=== PATIENT | male | born 1950 | race Caucasian/White ===

== ENCOUNTER 2017-11-17 08:56 | Day surgery (SDC) | payer BC ==
[~2017-11-17 08:56] MED LIST: Lactated Ringers 1,000 ML IV SCH
[2017-11-17] MEDS ORDERED: fentaNYL 100 MCG/2 ML SDV ONE (09:50)
[2017-11-17] MEDS ORDERED: Propofol 200 MG/20 ML SDV ONE (09:50)
--- NOTE | 2017-11-17 13:55 | OR ---
PREOPERATIVE DIAGNOSIS: Family history of colon cancer-father. POSTOPERATIVE DIAGNOSIS: Sigmoid diverticulosis, otherwise, normal exam. PROCEDURE PROPOSED: Total flexible colonoscopy. PROCEDURE DONE: Total flexible colonoscopy. INDICATION: A 66-year-old gentleman who comes in for colonic screening due to family history of colon cancer. Last examination about 10 years ago. His father was diagnosed in his 80s with colon cancer and is still living at . TECHNIQUE: The patient was brought to the endoscopy suite, placed in left lateral decubitus position. He was sedated with propofol per [employer]. The flexible video colonoscope was then passed transanally, and under visualization, advanced to the cecum without difficulty. Examination revealed a normal ascending, transverse, descending colon. Sigmoid colon revealed mild diverticulosis, and the rectum was normal. There was no evidence of any polyps, colitis, or other abnormalities. The scope was then withdrawn. The patient tolerated the procedure well. FINAL IMPRESSION: 1. Sigmoid diverticulosis. 2. Family history of colon cancer-father. PLAN: I feel at his age now he should have colonoscopies every 5 years because of his increased risk of either polyp or cancer formation. SCM: 11/17/2017 11:02:54 MODL: 11/17/2017 12:39:01 /[id number]
== END 2017-11-17 12:10 | disposition home or self-care (01) ==
LOC: VM.SDS 08:56
PROVIDERS: ATTEND Surgery
DX: Z12.11 Encounter for screening for malignant neoplasm of colon (principal); K57.30 Diverticulosis of large intestine without perforation or abscess without bleeding; I10 Essential (primary) hypertension; E78.1 Pure hyperglyceridemia; E03.9 Hypothyroidism, unspecified; J45.30 Mild persistent asthma, uncomplicated; N40.1 Benign prostatic hyperplasia with lower urinary tract symptoms; E78.5 Hyperlipidemia, unspecified; Z80.0 Family history of malignant neoplasm of digestive organs; Z79.899 Other long term (current) drug therapy; Z88.8 Allergy status to other drugs, medicaments and biological substances
CPT/HCPCS: 45378; J2704; J3010; J7120

== ENCOUNTER 2023-04-09 12:37 | Day surgery (SDC) | payer MEDICARE, BC ==
[2023-04-09] MEDS ORDERED: fentaNYL 100 MCG/2 ML SDV ONE (13:24)
[2023-04-09] MEDS ORDERED: Propofol 200 MG/20 ML SDV ONE ×2 (13:24→14:45)
== END 2023-04-09 16:20 | disposition home or self-care (01) ==
LOC: VM.SDS 12:37
PROVIDERS: ATTEND Family Medicine
DX: Z12.11 Encounter for screening for malignant neoplasm of colon (principal); K57.30 Diverticulosis of large intestine without perforation or abscess without bleeding; E78.1 Pure hyperglyceridemia; E03.9 Hypothyroidism, unspecified; N40.1 Benign prostatic hyperplasia with lower urinary tract symptoms; J45.909 Unspecified asthma, uncomplicated; I10 Essential (primary) hypertension; N52.9 Male erectile dysfunction, unspecified; E78.00 Pure hypercholesterolemia, unspecified; Z80.0 Family history of malignant neoplasm of digestive organs; Z79.890 Hormone replacement therapy; Z79.84 Long term (current) use of oral hypoglycemic drugs; Z79.899 Other long term (current) drug therapy; Z88.8 Allergy status to other drugs, medicaments and biological substances; Z98.890 Other specified postprocedural states
CPT/HCPCS: 00812; J2704; J3010; J7120